=== PATIENT | male | born 1950 | race Caucasian/White ===

== ENCOUNTER → 2020-10-24 | Day surgery (SDC) | payer MEDICARE, OTHER ==
[~2020-10-24] MED LIST: ALLOPURINOL100 MG PO; ASPIRIN EC81 MG PO; LIPITOR 10MG TA10 MG PO; LISINOPRIL-HCT1 EAC1 PO; METOPROLOL SUCC50 MG PO; MVI PO; MYSOLINE250 MG PO; NITROQUIK SL0.4 MG SL; TOPAMAX100 MG PO; VIT B 12 SL; VIT D 3 PO; [UNRECOGNIZED DRUG - OTHER]
== END | disposition home or self-care (01) ==
LOC: FAS 09:34
DX: K63.5 Polyp of colon (principal); I10 Essential (primary) hypertension; E78.5 Hyperlipidemia, unspecified; Z82.49 Family history of ischemic heart disease and other diseases of the circulatory system; Z87.891 Personal history of nicotine dependence
CPT/HCPCS: 88305; J2704; J7120

== ENCOUNTER 2021-04-29 10:58 | Emergency (ER) | payer MEDICARE, OTHER ==
[2021-04-29 11:35] LABS: BASOPHIL 0.4 % (0-2); EOSINOPHIL 5.2 % (0-7); HGB 15.5 g/dl (13.2-18.0); LYMPHOCYTE 28.1 % (15-48); MCH 33.2 pg (25.0-31.0); MCHC 34.4 g/dL (32.0-36.0); MCV 96.4 fL (78.0-100.0); MONOCYTE 7.4 % (0-12); MPV 10.3 fL (6.0-9.5); NEUTROPHIL 58.5 % (41-80); NRBC 0; PLT 181 K/uL (150-400); RBC 4.67 M/uL (4.70-6.00); RDW 12.9 % (11.5-14.0); WBC 6.7 K/uL (4.0-10.5)
[2021-04-29 12:06] LABS: ALBUMIN 3.9 g/dL (3.4-5.0); BILIRUBIN - TOTAL 0.3 mg/dL (0.2-1.0); BUN/CREAT RATIO (CALC) 24.3 RATIO; CREATININE 0.7 mg/dL (0.67-1.17); GLOBULIN (CALCULATION) 4.3 g/dL; POTASSIUM 3.5 mmol/L (3.5-5.1); TOTAL PROTEIN 8.2 g/dL (6.4-8.2)
[2021-04-29 12:11] LABS: PRO-BNP 123 pg/mL (<125)
== END 2021-04-29 18:37 | disposition home or self-care (01) ==
LOC: FER 10:58
PROVIDERS: Emergency Medicine
DX: J06.9 Acute upper respiratory infection, unspecified (principal); I10 Essential (primary) hypertension; Z20.822 Contact with and (suspected) exposure to COVID-19
CPT/HCPCS: 36415; 36600; 71045; 71275; 80053; 82803; 83605; 83880; 84145; 84484; 85025; 85379; 93005; 94640; 94760; Q9967; U0002

== ENCOUNTER → 2021-05-14 | Day surgery (SDC) | payer MEDICARE, OTHER | END | disposition home or self-care (01) | LOC: FAS 09:47 | DX: G56.03 Carpal tunnel syndrome, bilateral upper limbs (principal) ==